=== PATIENT | female | born 1955 | race Caucasian/White ===

== ENCOUNTER 2017-09-10 10:22 | Emergency (ER) | payer SELFPAY ==
[~2017-09-10] VITALS: Ht 160 cm; Wt 63.0 kg
[2017-09-10 11:14] LABS: HEMOGLOBIN 14.5 g/dl (12.0-16.0); IMMATURE GRANULOCYTES 0.1 % (0.0-1.0); MEAN CELL VOLUME 94.7 fL CALC (80.0-100.0); MEAN CORPUSCULAR HGB 31.9 pG CALC (26.0-32.0); MEAN CORPUSCULAR HGB CONC 33.7 g/L CALC (32.0-36.0); NEUT# 3.47 thou/uL (2.00-7.15); RED BLOOD COUNT 4.54 mill/uL (4.20-5.60); RED CELL DISTRI WIDTH 12.3 % (11.5-15.5)
[2017-09-10 11:33] LABS: ALBUMIN 4.7 g/dL (3.2-5.0); ALKALINE PHOSPHATASE 92 u/l (38-126); ANION GAP 17 (6-22 (CALC)); BILIRUBIN, TOTAL 0.5 mg/dL (0.0-1.4); BUN 10 mg/dL (8-23); BUN/CREATININE RATIO 16 (12-20 (CALC)); CARBON DIOXIDE 27 mmol/l (22-30); CHLORIDE 104 mmol/l (95-108); CREATININE 0.6 mg/dL (0.5-1.0); GFR > 60 ML/MIN (>=60 (CALC)); GFR FOR AFR.AMER. > 60 ML/MIN (>=60 (CALC)); POTASSIUM 3.8 mmol/l (3.5-5.1); SGOT/AST 30 u/l (9-36); SGPT/ALT 46 u/l (11-66); SODIUM 145 mmol/l (137-146); TOTAL PROTEIN 8.3 g/dL (6.3-8.2)
[2017-09-10 11:40] LABS: PROTHROMBIN TIME 10.6 SECONDS (9.0-12.5)
[2017-09-10 11:53] LABS: URINE BILIRUBIN - DIPSTICK NEGATIVE (NEGATIVE); URINE BLOOD DIPSTICK NEGATIVE (NEGATIVE); URINE CLARITY CLEAR; URINE COLOR YELLOW; URINE GLUCOSE - DIPSTICK NEGATIVE (NEGATIVE); URINE KETONE NEGATIVE (NEGATIVE); URINE LEUK ESTERASE NEGATIVE (NEGATIVE); URINE NITRITE - DIPSTICK NEGATIVE (Negative); URINE PH 6.5 (4.5-8.0); URINE PROTEIN - DIPSTICK NEGATIVE (NEG-TRACE); URINE SPECIFIC GRAVITY 1.015; URINE UROBILINOGEN - DIPSTICK 0.2 E.U./dL (0.2)
[2017-09-10] MEDS ORDERED: LISINOPRIL10 MG PO (12:41)
[2017-09-10 12:44] VITALS: BP 111/62
== END 2017-09-10 12:58 | disposition home or self-care (01) | DRG 305 ==
LOC: ED 10:22
PROVIDERS: Emergency Medicine
DX: I10 Essential (primary) hypertension (principal)

== ENCOUNTER 2017-09-14 08:42 | Emergency (ER) | payer SELFPAY ==
[~2017-09-14] VITALS: Ht 160 cm; Wt 63.6 kg
[~2017-09-14 08:42] MED LIST: LISINOPRIL10 MG PO
[2017-09-14 09:22] LABS: HEMATOCRIT 41.3 % (37.0-47.0); HEMOGLOBIN 13.9 g/dl (12.0-16.0); IMMATURE GRANULOCYTES 0.3 % (0.0-1.0); MEAN CELL VOLUME 93.7 fL CALC (80.0-100.0); MEAN CORPUSCULAR HGB 31.5 pG CALC (26.0-32.0); MEAN CORPUSCULAR HGB CONC 33.7 g/L CALC (32.0-36.0); NEUT# 3.51 thou/uL (2.00-7.15); RED BLOOD COUNT 4.41 mill/uL (4.20-5.60); RED CELL DISTRI WIDTH 12.3 % (11.5-15.5)
[2017-09-14 09:39] LABS: ALBUMIN 4.5 g/dL (3.2-5.0); ALKALINE PHOSPHATASE 79 u/l (38-126); BILIRUBIN, TOTAL 0.7 mg/dL (0.0-1.4); BUN 15 mg/dL (8-23); BUN/CREATININE RATIO 28 (12-20 (CALC)); CARBON DIOXIDE 24 mmol/l (22-30); CHLORIDE 106 mmol/l (95-108); CREATININE 0.5 mg/dL (0.5-1.0); GFR > 60 ML/MIN (>=60 (CALC)); GFR FOR AFR.AMER. > 60 ML/MIN (>=60 (CALC)); SGOT/AST 28 u/l (9-36); SGPT/ALT 35 u/l (11-66); SODIUM 142 mmol/l (137-146); TOTAL PROTEIN 7.8 g/dL (6.3-8.2)
[2017-09-14 09:43] LABS: ANION GAP 17 (6-22 (CALC)); POTASSIUM 4.6 mmol/l (3.5-5.1)
[2017-09-14] MEDS ORDERED: CATAPRES0.1 MG PO (10:27)
[2017-09-14 10:32] VITALS: BP 140/64
== END 2017-09-14 10:42 | disposition home or self-care (01) | DRG 305 ==
LOC: ED 08:42
PROVIDERS: Emergency Medicine
DX: I10 Essential (primary) hypertension (principal)

== ENCOUNTER 2019-02-23 09:48 | Emergency (ER) | payer MEDICARE ==
[~2019-02-23] VITALS: Ht 160 cm; Wt 59.1 kg
[~2019-02-23 09:48] MED LIST changes: +CATAPRES0.1 MG PO
[2019-02-23 10:43] LABS: HEMATOCRIT 36.6 % (37.0-47.0); IMMATURE GRANULOCYTES 0.6 % (0.0-5.0); MEAN CORPUSCULAR HGB 29.9 pG CALC (26.0-32.0); MEAN CORPUSCULAR HGB CONC 32.5 g/L CALC (32.0-36.0); NEUT# 8.07 thou/uL (2.00-7.15); RED BLOOD COUNT 3.98 mill/uL (4.20-5.60); RED CELL DISTRI WIDTH 11.9 % (11.5-15.5)
[2019-02-23 10:44] LABS: HEMOGLOBIN 11.9 g/dl (12.0-16.0)
[2019-02-23 11:06] LABS: ALBUMIN 3.5 g/dL (3.2-5.0); ANION GAP 14 (6-22 (CALC)); BILIRUBIN, TOTAL 0.7 mg/dL (0.0-1.4); BUN 9 mg/dL (8-23); BUN/CREATININE RATIO 15 (12-20 (CALC)); CARBON DIOXIDE 28 mmol/l (22-30); CHLORIDE 98 mmol/l (95-108); CREATININE 0.6 mg/dL (0.5-1.0); GFR > 60 ML/MIN (>=60 (CALC)); GFR FOR AFR.AMER. > 60 ML/MIN (>=60 (CALC)); POTASSIUM 4.5 mmol/l (3.5-5.1); SGOT/AST 110 u/l (9-36); SODIUM 136 mmol/l (137-146); TOTAL PROTEIN 6.6 g/dL (6.3-8.2)
[2019-02-23 11:07] LABS: ALKALINE PHOSPHATASE 365 u/l (38-126)
[2019-02-23] MEDS ORDERED: ATORVASTATIN CA20 MG PO (11:16)
[2019-02-23] MEDS ORDERED: LISINOPRIL20 M1 PO (11:16)
[2019-02-23] MEDS ORDERED: AMLODIPINE BESYL5 MG PO (11:16)
[2019-02-23 11:17] LABS: MYOGLOBIN 23 ng/mL (0 - 62)
[2019-02-23] MEDS ORDERED: DOXYCYCL HYC100 MG PO (12:37)
[2019-02-23 13:00] VITALS: BP 123/59
== END 2019-02-23 13:00 | disposition home or self-care (01) ==
LOC: ED 09:48
PROVIDERS: Family Medicine
DX: J18.9 Pneumonia, unspecified organism (principal); R74.8 Abnormal levels of other serum enzymes; I10 Essential (primary) hypertension; Z86.73 Personal history of transient ischemic attack (TIA), and cerebral infarction without residual deficits; R06.02 Shortness of breath
CPT/HCPCS: Q9967

== ENCOUNTER 2019-03-07 11:47 | Inpatient (IN) | payer MEDICARE ==
[~2019-03-07] VITALS: Ht 160 cm; Wt 56.2 kg
[~2019-03-07 11:47] MED LIST changes: +AMLODIPINE BESYL5 MG PO; +ATORVASTATIN CA20 MG PO; +DOXYCYCL HYC100 MG PO; +LISINOPRIL20 M1 PO
--- NOTE | 2019-03-07 11:48 | NUR ---
PATIENT TO ROOM VIA WHEELCHAIR. BEDSIDE TRIAGE COMPLETED.
--- NOTE | 2019-03-07 12:40 | NUR ---
PATIENT REPORTS BEING TREATED OUT PATIENT FOR PNEUMONIA WENT TO PCP FOR FOLLOW UP, ANTIBIOTIC CHANGED AND SENT HOME BUT INFORMED TO FOLLOW IN ED IN SYMPTOMS CONTINUED. PATIENT REPORTS NO RELIEF AND FEEL LIKE SHE IS WORSE.
[2019-03-07 12:58] LABS: HEMOGLOBIN 11.9 g/dl (12.0-16.0); IMMATURE GRANULOCYTES 0.5 % (0.0-5.0); MEAN CELL VOLUME 90.9 fL CALC (80.0-100.0); MEAN CORPUSCULAR HGB 29.2 pG CALC (26.0-32.0); MEAN CORPUSCULAR HGB CONC 32.2 g/L CALC (32.0-36.0); NEUT# 10.04 thou/uL (2.00-7.15); RED BLOOD COUNT 4.07 mill/uL (4.20-5.60); RED CELL DISTRI WIDTH 11.9 % (11.5-15.5)
[2019-03-07 13:25] LABS: ALBUMIN 3.4 g/dL (3.2-5.0); ANION GAP 16 (6-22 (CALC)); BILIRUBIN, TOTAL 0.5 mg/dL (0.0-1.4); BUN 16 mg/dL (8-23); BUN/CREATININE RATIO 25 (12-20 (CALC)); CARBON DIOXIDE 26 mmol/l (22-30); CHLORIDE 98 mmol/l (95-108); CREATININE 0.6 mg/dL (0.5-1.0); GFR > 60 ML/MIN (>=60 (CALC)); GFR FOR AFR.AMER. > 60 ML/MIN (>=60 (CALC)); SGOT/AST 123 u/l (9-36); SODIUM 134 mmol/l (137-146)
[2019-03-07 13:38] LABS: MYOGLOBIN 20 ng/mL (0 - 62)
[2019-03-07] MEDS ORDERED: AZITHROMYCIN500 MG PO (13:47)
[2019-03-07] MEDS ORDERED: ASPIRIN81 MG PO (13:49)
[2019-03-07] MEDS ORDERED: PROAIR HFA108 MCG/AC IN (13:49)
--- NOTE | 2019-03-07 13:51 | NUR ---
CRACKLES NOTED TO BILATERAL LOWER LUNGS AND RIGHT MIDDLE LOBE ALL OTHER LUNG SOUNDS CLEAR.
[2019-03-07 13:54] LABS: ALKALINE PHOSPHATASE 731 u/l (38-126)
--- NOTE | 2019-03-07 14:51 | NUR ---
ATTEMPT MADE TO CALL REPORT SPOKE TO ABHISHEK. WILL HAVE NURSE CALL BACK.
--- NOTE | 2019-03-07 15:01 | NUR ---
REPORT CALLED TO LORA LO.
--- NOTE | 2019-03-07 15:09 | NUR ---
PATIENT TRANSPORTED TO [facility] VIA WHEELCHAIR. IV ABX TO CONTINUE TO INFUSE ON MEDSUR. ANGELA WEISS AWARE OF PATIENT ARRIVAL TO ROOM. STRATEGIC PLANNING SPECIALIST AT BEDSIDE. CARE RELINQUISHED.
--- NOTE | 2019-03-07 15:30 | NUR ---
PT ARRIVES BY WHEELCHAIR FROM ER, AWAKE, ALERT, ORIENTED X 3. LUNGS WITH CRACKLES TO BILATERAL BASES. RA. NO SHORTNESS OF BREATH NOTED. PT PROVIDES ADMISSION INFORMATION WITHOUT DIFFICULTY.
[2019-03-07 15:31] VITALS: BP 110/70
--- NOTE | 2019-03-07 18:41 | NUR ---
PT WITH ABX INFUSING, RESTING IN THE BED IN NO DISTRESS. SISTER HAS VISITED. PT SEEN BY ELIO STEPHENSON.
[2019-03-07 18:59] VITALS: BP 104/69
--- NOTE | 2019-03-07 19:45 | NUR ---
ASSESSMENT COMPLETED. ASSISTED TO THE BATHROOM AND ON RA; SOB ON EXERTION. IV SITE PATENT AND ORDERED IVF INFUSING WELL. UPDATED ON POC. URINE SPECIMEN OBTAINED. EDCUATED ON INCENTIVE SPIROMETER AND RETURN DEMONSTRATION OF 750 AT THIS TIME; 10 REPS COMPLETED AND SET AT BEDSIDE. TEMP 99.5; WILL CONTINUE TO MONITOR. CALL LIGHT IS IN REACH. WILL CONTINUE TO MONITOR.
[2019-03-07 20:48] LABS: URINE BILIRUBIN - DIPSTICK NEGATIVE (NEGATIVE); URINE BLOOD DIPSTICK NEGATIVE (NEGATIVE); URINE COLOR YELLOW; URINE GLUCOSE - DIPSTICK NEGATIVE (NEGATIVE); URINE KETONE NEGATIVE (NEGATIVE); URINE NITRITE - DIPSTICK NEGATIVE (Negative); URINE PROTEIN - DIPSTICK NEGATIVE (NEG-TRACE); URINE SPECIFIC GRAVITY 1.025
[2019-03-07 20:49] LABS: URINE LEUK ESTERASE SMALL (NEGATIVE); URINE SQUAMOUS EPITHELIAL CELL FEW EPI/hpf (0-FEW)
--- NOTE | 2019-03-07 23:55 | NUR ---
PT. RESTING IN BED WITH NO DISTRESS NOTED; DENIES NEEDS/PAIN. TEMP 97.4. ENCOURAGED TO CALL FOR ANY NEEDS. CALL LIGHT IS IN REACH.
--- NOTE | 2019-03-08 02:32 | NUR ---
PT. RESTING IN BED WITH NO DISTRESS NOTED; DENIES NEEDS/PAIN.RESP. EVEN AND UNLABORED. CALL LIGHT IS IN REACH.
[2019-03-08 04:36] VITALS: BP 112/69
--- NOTE | 2019-03-08 04:36 | NUR ---
VSS; DENIES NEEDS/PAIN. NEW BAG OF ORDERED IVF HUNG. CALL LIGHT IS IN REACH. WILL CONTINUE TO MONITOR.
[2019-03-08 04:42] LABS: HEMATOCRIT 33.9 % (37.0-47.0); HEMOGLOBIN 10.9 g/dl (12.0-16.0); IMMATURE GRANULOCYTES 0.5 % (0.0-5.0); MEAN CELL VOLUME 90.9 fL CALC (80.0-100.0); MEAN CORPUSCULAR HGB 29.2 pG CALC (26.0-32.0); MEAN CORPUSCULAR HGB CONC 32.2 g/L CALC (32.0-36.0); NEUT# 6.76 thou/uL (2.00-7.15); RED BLOOD COUNT 3.73 mill/uL (4.20-5.60); RED CELL DISTRI WIDTH 11.9 % (11.5-15.5)
[2019-03-08 04:59] LABS: ANION GAP 14 (6-22 (CALC)); BUN 12 mg/dL (8-23); BUN/CREATININE RATIO 25 (12-20 (CALC)); CARBON DIOXIDE 25 mmol/l (22-30); CHLORIDE 103 mmol/l (95-108); CREATININE 0.5 mg/dL (0.5-1.0); GFR > 60 ML/MIN (>=60 (CALC)); GFR FOR AFR.AMER. > 60 ML/MIN (>=60 (CALC)); MAGNESIUM 2.2 mg/dL (1.6-2.3); POTASSIUM 4.1 mmol/l (3.5-5.1); SODIUM 138 mmol/l (137-146)
--- NOTE | 2019-03-08 06:45 | NUR ---
REPORT GIVEN TO LORA LO.
[2019-03-08 07:47] VITALS: BP 135/65
--- NOTE | 2019-03-08 08:33 | NUR ---
PT AWAKE, ALERT, ORIENTED X 3. LUNGS WITH CRACKLES TO BASES, RA, NO COMPLAINT OF SHORTNESS OF BREATH OR OTHERWISE. NO COUGH, PT AMBULATORY IN ROOM WITHOUT DIFFICULTY.
--- NOTE | 2019-03-08 12:00 | NUR ---
PT SEEN BY DR DOVE TODAY, CONSENSUS IS TO STAY ONE MORE NIGHT TO BE SURE THAT SHE IS WELL ENOUGH TO BE DISCHARGED TO HOME. PT DENIES SHORTNESS OF BREATH OR CHEST PAIN.
[2019-03-08] MEDS ORDERED: DOXYCYC MONO100 M2 PO (12:01)
[2019-03-08 15:16] VITALS: BP 104/60
--- NOTE | 2019-03-08 16:00 | NUR ---
PT REMAINS BEFORE, AT REST IN THE BED, NO DISTRESS, OFFERS NO COMPLAINTS. SLEEPING PILL ADDED TO MED LIST BY ELIO STEPHENSON.
[2019-03-08 19:50] VITALS: BP 118/54
--- NOTE | 2019-03-08 20:00 | NUR ---
PATIENT RESTING IN BED AT THIS TIME-AWAKE ALERT AND ORIENTEDX3. IVF PATENT AND INFUSING VIA LEFT AC SITE AT 100CC/HR. NO COMPLAINTS AT THIS TIME. SAFETY PRECAUTIONS REINFORCED. CALL LIGHT IN REACH. WILL CONT TO MONITOR.
[2019-03-09 00:07] VITALS: BP 150/67
--- NOTE | 2019-03-09 00:48 | NUR ---
PATIENT RESTING IN BED AT THIS TIME-POSITIONED ON HER SIDE. EYES CLOSED AND APPEARS SLEEPING. RESP ARE EVEN AND UNLABORED. IVF NS PATENT AND INFUSING AT 100CC/HR-SITE REMAINS HEALTHY AT THIS TIME. CALL LIGHT IN REACH. WILL CONT TO MONITOR.
[2019-03-09 04:47] VITALS: BP 109/61
--- NOTE | 2019-03-09 07:05 | NUR ---
PT REPORT RECIEVED FROM LORA RHODES. PT WATCHING TELEVISION. NO S/S OF DISTRESS. CALL LIGHT IN REACH. VU CONTINUE TO MONITOR.
[2019-03-09 07:33] VITALS: BP 135/51
--- NOTE | 2019-03-09 07:44 | NUR ---
PT A/O X3. RESP EVEN AND UNLABORED. LUNGS CLEAR, EXCEPT RML/RLL BASES; CRACKLES NOTED. BOWEL SOUNDS ACTIVE X4. STRONG RADIAL AND PEDAL PULSES. #20 LAC NS @100. SITE APPEARS HEALTHY. SKIN INTACT. PT DENIES ANY PAIN OR NEEDS. POC DISCUSSED. SAFETY PRECAUTIONS IN PLACE. CALL LIGHT IN REACH. WILL CONTINUE TO MONITOR.
[2019-03-09] MEDS ORDERED: PREDNISONE10 MG PO (10:50)
[2019-03-09] MEDS ORDERED: LEVAQUIN750 MG PO (10:50)
--- NOTE | 2019-03-09 12:04 | NUR ---
PT WATCHING TELEVISION. NO C/O PAIN OR NEEDS. CALL LIGHT IN REACH. WILL CONTINUE TO MONITOR.
[2019-03-09 12:26] LABS: HEMATOCRIT 34.9 % (37.0-47.0); HEMOGLOBIN 11.1 g/dl (12.0-16.0); MEAN CELL VOLUME 91.4 fL CALC (80.0-100.0); MEAN CORPUSCULAR HGB 29.1 pG CALC (26.0-32.0); MEAN CORPUSCULAR HGB CONC 31.8 g/L CALC (32.0-36.0); RED BLOOD COUNT 3.82 mill/uL (4.20-5.60); RED CELL DISTRI WIDTH 12.1 % (11.5-15.5)
[2019-03-09 12:53] LABS: ALBUMIN 3.3 g/dL (3.2-5.0); ALKALINE PHOSPHATASE 483 u/l (38-126); ANION GAP 14 (6-22 (CALC)); BUN 10 mg/dL (8-23); BUN/CREATININE RATIO 23 (12-20 (CALC)); CARBON DIOXIDE 25 mmol/l (22-30); CHLORIDE 106 mmol/l (95-108); CREATININE 0.5 mg/dL (0.5-1.0); GFR > 60 ML/MIN (>=60 (CALC)); GFR FOR AFR.AMER. > 60 ML/MIN (>=60 (CALC)); POTASSIUM 3.9 mmol/l (3.5-5.1); SGOT/AST 46 u/l (9-36); SODIUM 142 mmol/l (137-146); TOTAL PROTEIN 6.7 g/dL (6.3-8.2)
[2019-03-09 12:58] LABS: BILIRUBIN, TOTAL 0.2 mg/dL (0.0-1.4)
[2019-03-09 14:40] VITALS: BP 103/54
--- NOTE | 2019-03-09 15:34 | NUR ---
PT WATCHING TELEVISON. IV FLUIDS INFUSING. NO C/O PAIN OR NEEDS. CALL LIGHT IN REACH. WILL CONTINUE TO MONITOR.
[2019-03-09 19:30] VITALS: BP 136/62
--- NOTE | 2019-03-09 19:30 | NUR ---
PATIENT RESTING IN BED AT THIS TIME-AWAKE ALERT AND ORIENTEDX3. PATIENT WITH NO COMPLAINTS AT THIS TIME. IVF PATENT AND INFUSING VIA RIGHT AC SITE AT 100CC/HR. SITE REMAINS HEALTHY AT THIS TIME. NON-PRODUCTIVE COUGH NOTED. SAFETY PRECAUTIONS REINFORCED. CALL LIGHT IN REACH. WILL CONT TO MONITOR.
--- NOTE | 2019-03-10 | NUR ---
PATIENT RESTING IN BED AT THIS TIME WITH EYES CLOSED-APPEARS SLEEPING. RESP ARE EVEN AND UNLABORED. IVF PATENT AND INFUSING AT 100CC/HR VIA [facility] SITE. SITE REMAINS HEALTHY. CALL LIGHT IN REACH. WILL CONT TO MONITOR.
[2019-03-10 04:40] VITALS: BP 128/79
[2019-03-10 05:23] LABS: HEMATOCRIT 32.3 % (37.0-47.0); HEMOGLOBIN 10.2 g/dl (12.0-16.0); IMMATURE GRANULOCYTES 0.8 % (0.0-5.0); MEAN CELL VOLUME 93.1 fL CALC (80.0-100.0); MEAN CORPUSCULAR HGB 29.4 pG CALC (26.0-32.0); MEAN CORPUSCULAR HGB CONC 31.6 g/L CALC (32.0-36.0); NEUT# 20.33 thou/uL (2.00-7.15); RED BLOOD COUNT 3.47 mill/uL (4.20-5.60); RED CELL DISTRI WIDTH 12.3 % (11.5-15.5)
--- NOTE | 2019-03-10 05:30 | NUR ---
PATIENT AWAKE AND WATCHING TV. NO COMPLAINTS AT THIS TIME. IVF PATENT AND INFUSING AT 100CC/HR VIA RAC SITE. CALL LIGHT IN REACH. WILL CONT TO MONITOR.
[2019-03-10 05:40] LABS: ALBUMIN 2.9 g/dL (3.2-5.0); ALKALINE PHOSPHATASE 370 u/l (38-126); ANION GAP 14 (6-22 (CALC)); BILIRUBIN, TOTAL 0.2 mg/dL (0.0-1.4); BUN 14 mg/dL (8-23); BUN/CREATININE RATIO 25 (12-20 (CALC)); CARBON DIOXIDE 24 mmol/l (22-30); CHLORIDE 107 mmol/l (95-108); CREATININE 0.5 mg/dL (0.5-1.0); GFR > 60 ML/MIN (>=60 (CALC)); GFR FOR AFR.AMER. > 60 ML/MIN (>=60 (CALC)); POTASSIUM 4.5 mmol/l (3.5-5.1); SGOT/AST 36 u/l (9-36); SODIUM 141 mmol/l (137-146); TOTAL PROTEIN 5.8 g/dL (6.3-8.2)
[2019-03-10 07:35] VITALS: BP 145/65
--- NOTE | 2019-03-10 08:00 | NUR ---
PT AWAKE, ALERT, ORIENTED X 3. LUNGS CLEAR, RA. PT AMBULATORY IN ROOM WITHOUT DIFFICULTY. LABS REVIEWED WITH PT, POSSIBLE CAUSES GIVEN FOR ABNORMAL ONES. NO DISTRESS, NO COMPLAINTS.
--- NOTE | 2019-03-10 12:46 | NUR ---
PT HAS BEEN DISCHARGED TO HOME. PT VERBALIZES UNDERSTANDING OF DC INSTRUCTIONS, TAKEN TO LOBBY BY WHEELCHAIR.
== END 2019-03-10 12:46 | disposition home or self-care (01) | DRG 195 ==
LOC: ED 11:47 → ED-I 13:01 → ED 13:23 → MS2 13:24
PROVIDERS: Emergency Medicine; Internal Medicine; Nurse Practitioner Family; ADMIT Internal Medicine; ATTEND Internal Medicine
DX: J18.9 Pneumonia, unspecified organism (principal); I10 Essential (primary) hypertension; R74.0 Nonspecific elevation of levels of transaminase and lactic acid dehydrogenase [LDH]; E78.5 Hyperlipidemia, unspecified; K76.0 Fatty (change of) liver, not elsewhere classified; D47.3 Essential (hemorrhagic) thrombocythemia; Z86.73 Personal history of transient ischemic attack (TIA), and cerebral infarction without residual deficits; Z88.0 Allergy status to penicillin; Z87.891 Personal history of nicotine dependence

== ENCOUNTER 2019-04-07 12:45 | Inpatient (IN) | payer MEDICARE ==
[~2019-04-07] VITALS: Ht 160 cm; Wt 58.1 kg
[~2019-04-07 12:45] MED LIST changes: +ASPIRIN81 MG PO; +AZITHROMYCIN500 MG PO; +DOXYCYC MONO100 M2 PO; +LEVAQUIN750 MG PO; +PREDNISONE10 MG PO; +PROAIR HFA108 MCG/AC IN
--- NOTE | 2019-04-07 12:58 | NUR ---
PT TO ROOM IN NO DISTRESS VIA WC
--- NOTE | 2019-04-07 13:49 | NUR ---
PT RESTING ON STRETCHER; NO S/S OF DISTRESS NOTED; VSS; NO SOB NOTED; IV INITIATED AND LABS OBTAINED; PT TOLERATED WELL; WILL CONTINUE TO MONITOR
[2019-04-07 13:55] LABS: HEMATOCRIT 33.5 % (37.0-47.0); HEMOGLOBIN 10.9 g/dl (12.0-16.0); IMMATURE GRANULOCYTES 1.3 % (0.0-5.0); MEAN CELL VOLUME 90.3 fL CALC (80.0-100.0); MEAN CORPUSCULAR HGB 29.4 pG CALC (26.0-32.0); MEAN CORPUSCULAR HGB CONC 32.5 g/L CALC (32.0-36.0); NEUT# 8.77 thou/uL (2.00-7.15); RED BLOOD COUNT 3.71 mill/uL (4.20-5.60); RED CELL DISTRI WIDTH 14.1 % (11.5-15.5)
[2019-04-07 14:14] LABS: ALBUMIN 3.6 g/dL (3.2-5.0); ALKALINE PHOSPHATASE 453 u/l (38-126); ANION GAP 18 (6-22 (CALC)); BUN 15 mg/dL (8-23); BUN/CREATININE RATIO 27 (12-20 (CALC)); CARBON DIOXIDE 25 mmol/l (22-30); CHLORIDE 96 mmol/l (95-108); CREATININE 0.6 mg/dL (0.5-1.0); GFR > 60 ML/MIN (>=60 (CALC)); GFR FOR AFR.AMER. > 60 ML/MIN (>=60 (CALC)); POTASSIUM 4.6 mmol/l (3.5-5.1); SGOT/AST 42 u/l (9-36); SODIUM 133 mmol/l (137-146); TOTAL PROTEIN 6.7 g/dL (6.3-8.2)
[2019-04-07 14:21] LABS: BILIRUBIN, TOTAL 0.5 mg/dL (0.0-1.4)
--- NOTE | 2019-04-07 14:44 | NUR ---
PT RESTING ON STRETCHER; NO S/S OF DISTRESS NOTED; VSS; WILL CONTINUE TO MONITOR
--- NOTE | 2019-04-07 15:41 | NUR ---
PT RESTING ON STRETCHER; NO S/S OF DISTRESS NOTED; VSS; WILL CONTINUE TO MONTIOR
--- NOTE | 2019-04-07 16:41 | NUR ---
PT RESTING ON STRETCHER; DENIES ANY SOB OR PAIN; VSS; IV ANTIBIOTICS INFUSING TO RAC; PT DENIES ANY NEEDS AT THIS TIME; CALL LIGHT WITHIN REACH; WILL CONTINUE TO MONITOR
[2019-04-07 17:18] VITALS: BP 136/64
--- NOTE | 2019-04-07 17:18 | NUR ---
Admission Note Report Given to: LORA LO Transported by: X Wheelchair Stretcher Transported with: X Nurse Transporter X Patent IV O2 Processing Rep
--- NOTE | 2019-04-07 18:00 | NUR ---
PT ARRIVES TO ROOM VIA STRETCHER FROM ER, ALERT AND ORIENTED X 3. LUNGS CLEAR, RA. NO DISTRESS, NO COMPLAINTS. TALKATIVE.
[2019-04-07 19:04] VITALS: BP 97/64
--- NOTE | 2019-04-07 19:30 | NUR ---
PATIENT RESTING IN BED WITH HOB ELEVATED ON RA-AWAKE ALERT AND ORIENTEDX3. PATIENT WITH C/O SWELLING TO RIGHT AC IV SITE-IVF STOPPED AT THIS TIME. WILL RE-EVAL. VOIDING QS YELLOW URINE IN BR-STEADY ON HER FEET. SAFETY PRECAUTIONS REINFORCED. CALL LIGHT IN REACH. WILL CONT TO MONITOR.
--- NOTE | 2019-04-07 20:30 | NUR ---
PATIENT RESTING IN BED-RIGHT AC IV SITE WITH GOOD BLOOD RETURN, FLUSHES FREELY BUT PATIENT APPEARS TO WANT IT CHANGED. NEW IV SITE TO LEFT HAND STARTED WITH GOOD BLOOD RETURN-#22 GAUGE. IVF NS HUNG AND INFUSING VIA LEFT HAND SITE AT 100CC/HR. PATIENT REFUSING TO TAKE LIPITOR TONIGHT-STATES THAT IT WAS STOPPED WHEN SHE WAS HERE APPROX 1 MONTH AGO. LEATHA DISCUSS WITH MD IN AM. CALL LIGHT IN REACH. WILL CONT TO MONITOR.
--- NOTE | 2019-04-07 23:48 | NUR ---
PATIENT RESTING IN BED-APPEARS SLEEPING AT THIS TIME WITH EYES CLOSED. RESP ARE EVEN AND UNLABORED. CALL LIGHT IN REACH. WILL CONT TO MONITOR.
[2019-04-08 03:55] VITALS: BP 109/68
--- NOTE | 2019-04-08 04:14 | NUR ---
PATIENT RESTING IN BED-AWAKE FOR AM LABS. NO COMPLAINTS AT THIS TIME. IVF PATENT AND INFUSING VIA LEFT HAND SITE. SITE REMAINS HEALTHY AT THIS TIME. CALL LIGHT IN REACH. WILL CONT TO MONITOR.
[2019-04-08 05:35] LABS: HEMATOCRIT 30.6 % (37.0-47.0); HEMOGLOBIN 9.8 g/dl (12.0-16.0); MEAN CELL VOLUME 90.5 fL CALC (80.0-100.0); RED BLOOD COUNT 3.38 mill/uL (4.20-5.60); RED CELL DISTRI WIDTH 14.2 % (11.5-15.5)
[2019-04-08 06:09] LABS: ANION GAP 14 (6-22 (CALC)); BUN 9 mg/dL (8-23); BUN/CREATININE RATIO 20 (12-20 (CALC)); CARBON DIOXIDE 22 mmol/l (22-30); CHLORIDE 102 mmol/l (95-108); CREATININE 0.4 mg/dL (0.5-1.0); GFR > 60 ML/MIN (>=60 (CALC)); GFR FOR AFR.AMER. > 60 ML/MIN (>=60 (CALC)); POTASSIUM 4.7 mmol/l (3.5-5.1); SODIUM 134 mmol/l (137-146)
[2019-04-08 07:35] VITALS: BP 127/53
--- NOTE | 2019-04-08 08:00 | NUR ---
PT AWAKE, ALERT, ORIENTED X 3, IN NO DISTRESS. PT WITH CLEAR LUNGS, RA. PT IS AMBULATORY IN ROOM WITHOUT ASSIST. PT TALKS ON HER PHONE OFTEN. NO REPORTED SHORTNESS OF BREATH SINCE ARRIVAL.
--- NOTE | 2019-04-08 12:00 | NUR ---
PT TO CT AND BACK, UPDATED ON RESULTS THEY WERE KNOWN. NO SHORTNESS OF BREATH.
[2019-04-08 15:24] VITALS: BP 109/64
--- NOTE | 2019-04-08 16:00 | NUR ---
PT WITH FEVER OF 101.4, TREATED WITH TYLENOL, NOW 99.2. PT RESTS IN THE BED WITH VISITOR AT BEDSIDE. WESTLEY.
--- NOTE | 2019-04-08 19:20 | NUR ---
PT RESTING IN BED WATCHING TV WITH AT BEDSIDE. A&O X3. STATES A LITTLE BIT OF DISCOMFORT/PAIN AROUND HER ANKLE. LEG KEPT ELEVATED. ASSESSMENT COMPLETED. NO OTHER NEEDS AT THIS TIME. CALL LIGHT IN REACH. CONTINUE TO MONITOR.
--- NOTE | 2019-04-08 19:25 | NUR ---
PT RESTING IN BED. A&O X3. NO DISTRESS. NO NEEDS AT THIS TIME. ASSESSMENT COMPLETED. CALL LIGHT IN REACH. CONTINUE TO MONITOR.
[2019-04-08 20:07] VITALS: BP 111/63
[2019-04-08 22:53] LABS: URINE BILIRUBIN - DIPSTICK NEGATIVE (NEGATIVE); URINE BLOOD DIPSTICK NEGATIVE (NEGATIVE); URINE COLOR YELLOW; URINE GLUCOSE - DIPSTICK NEGATIVE (NEGATIVE); URINE KETONE NEGATIVE (NEGATIVE); URINE LEUK ESTERASE NEGATIVE (NEGATIVE); URINE NITRITE - DIPSTICK NEGATIVE (Negative); URINE PROTEIN - DIPSTICK NEGATIVE (NEG-TRACE); URINE UROBILINOGEN - DIPSTICK 0.2 E.U./dL (0.2)
--- NOTE | 2019-04-09 | NUR ---
PT WATCHING TV IN BED. ICE PACK GIVEN FOR MILD DISCOMFORT IN HAND. NO OTHER NEEDS AT THIS TIME. CALL LIGHT IN REACH.CONTINUE TO MONITOR.
--- NOTE | 2019-04-09 04:02 | NUR ---
PT AWAKE RESTING IN BED. NO NEEDS AT THIS TIME. CALL LIGHT IN REACH. CONTINUE TO MONTIOR.
[2019-04-09 04:05] VITALS: BP 117/63
--- NOTE | 2019-04-09 06:13 | NUR ---
PT RESTING IN BED WATCHING TV. NO NEEDS AT THIS TIME. CALL LIGHT IN REACH. CONTINUE TO MONITOR.
--- NOTE | 2019-04-09 07:33 | NUR ---
Vancomycin consult Age: 64 yo Serum creatinine: 1 mg/dL (rounded) Height: 63.0 Inches Weight (kg): 58 IBW (kg): 52.40 Dosing wt(kg): 58 Estimated Creatinine clearance (ml/min): 45.8 Vd (liters): 40.6 (factor used: 0.7 L/kg) Abdiaziz (hr-1): 0.042 Half life (hrs): 16.50 Vancomycin 1000 mg q 24 hrs with an expected Cpeak of 37 mcg/ml and an expected Ctrough of 15 mcg/ml trough on 04/11/19 at 1930.
--- NOTE | 2019-04-09 08:35 | NUR ---
ASSESSMENT IS COMPLETED: IV SITE IS FREE FROM REDNESS OR EDEMA. HR IS REG, PULSES ARE STRONG X4, ABD IS SOFT WITH ACTIVE BS, BREATH SOUNDS ARE CLEAR BILATERALLY. CONTINUE TO OSBERVE AND MONITOR.
--- NOTE | 2019-04-09 12:15 | NUR ---
PT IS SITTING IN THE BED WITH NO DISTRESS NOTED IV SITE IS FREE FROM REDNESS OR EDMA. TALKING WITH FAMILY IN THE ROOM.
--- NOTE | 2019-04-09 14:32 | NUR ---
CALLED [facility] TO SET UP TRANSPORT FOR THIS PATIENT TO BE TRANSFERRED TO [facility]. CALLED AT SPOKE TO BRUCE, [facility] SYSTEMS DEVELOPMENT CONSULTANT WAS TOLD THEY WILL SEND THEM IN ABOUT 30 MINUTES.
[2019-04-09 15:09] VITALS: BP 138/78
--- NOTE | 2019-04-09 15:15 | NUR ---
IV SITE REMAINS INTACT. [facility] HERE TO TRANSPORT PT. REPORT GIVEN. CONTINUE TO OSBERVE AND MONITOR.
--- NOTE | 2019-04-09 15:29 | NUR ---
SPOKE WITH MAURI PAULINO AT [facility]., PT BEING TRANSFERRED BY [facility]. IV SITE FLUSHED WARNED THEM IT MAY HAVE TRIED TO LEAK WHEN I WAS FLUSHING. VERBALIZED UNDERSTANDING.
--- NOTE | 2019-04-09 16:22 | NUR ---
Discharge instructions given. Patient verbalizes understanding of same. Discharged in good condition via Medical Transport to *Other with *Other. All belongings sent with pt.REGINA JIMENEZ [facility]
[2019-04-11 13:50] LABS: Procalcitonin_i 0.16 ng/mL (<0.10)
== END 2019-04-09 15:16 | DRG 545 ==
LOC: ED 12:45 → ED-I 15:01 → ED 15:17 → MS2 15:18
PROVIDERS: Emergency Medicine; ADMIT Internal Medicine; ATTEND Internal Medicine
DX: M35.9 Systemic involvement of connective tissue, unspecified (principal); J18.9 Pneumonia, unspecified organism; I10 Essential (primary) hypertension; E78.5 Hyperlipidemia, unspecified; D47.3 Essential (hemorrhagic) thrombocythemia; R74.0 Nonspecific elevation of levels of transaminase and lactic acid dehydrogenase [LDH]; Z87.891 Personal history of nicotine dependence; Z88.1 Allergy status to other antibiotic agents; Z86.73 Personal history of transient ischemic attack (TIA), and cerebral infarction without residual deficits
CPT/HCPCS: G0378; J0692; J1650; Q9967